=== PATIENT | female | born 1960 | race Asian ===

== ENCOUNTER 2020-10-14 15:56 | Emergency (ER) | payer BC, OTHER ==
[~2020-10-14] VITALS: Ht 165.1 cm; Wt 49.9 kg
[2020-10-14] MEDS ORDERED: KETOROLAC TROMETH 30 MG/ML 1ML VIAL IV ONE (16:45)
[2020-10-14] MEDS ORDERED: ALPRAZolam 0.25 MG TAB PO ONE (16:45)
[2020-10-14 17:05] LABS: Urine Bacteria NONE SEEN /hpf (None Seen); Urine Blood 3+ /uL (Negative); Urine Mucus FEW (None Seen); Urine Specific Gravity 1.014 (1.001-1.035); Urine WBC 202 /hpf (0 - 5)
[2020-10-14] MEDS ORDERED: cefTRIAXone 1GM/50ML D5W 50 ML IV ONE (17:15)
[2020-10-14 17:29] LABS: Basophils # (auto) 0.1 10 ^3/uL (0-0.2); Basophils % (auto) 0.7 % (0.0-2.0); Eosinophils # (auto) 0.1 10 ^3/uL (0-0.8); Eosinophils % (auto) 0.9 % (0.0-7.0); Hemoglobin 14.8 g/dL (12.2-16.2); Lymphocytes # (auto) 1.7 10 ^3/uL (0.4-5.4); Lymphocytes % (auto) 18.8 % (10.0-50.0); Mean Corpuscular Hgb Conc. 34.4 g/dL (32.0-36.0); Mean Corpuscular Volume 87.1 fL (80.0-100.0); Monocytes # (auto) 0.4 10 ^3/uL (0-1.3); Monocytes % (auto) 4.9 % (0.0-12.0); Neutrophils # (auto) 6.9 10 ^3/uL (1.6-8.6); Neutrophils % (auto) 74.7 % (37.0-80.0); Red Blood Cells 4.93 10^6/uL (4.0-5.20); Red Cell Distribution Width 13.5 % (11.8-14.3); White Blood Cell 9.2 10^3/uL (4.4-10.8)
[2020-10-14 17:49] LABS: Calcium 9.4 mg/dL (8.5-10.1); Potassium 4.1 mmol/L (3.5-5.1)
[2020-10-14 17:55] LABS: Albumin 3.7 g/dL (3.4-5.0); BUN/Creatinine Ratio 38.8; Bilirubin, Total 0.4 mg/dL (0.2-1.0); Total Protein 7.8 g/dL (6.4-8.2)
[2020-10-14 18:22] VITALS: BP 120/78
[2020-10-14] MEDS ORDERED: CEFD300C2 PO (18:54)
== END 2020-10-14 19:20 | disposition home or self-care (01) ==
LOC: ER 15:56
DX: R31.9 Hematuria, unspecified (principal); E11.9 Type 2 diabetes mellitus without complications; Z90.710 Acquired absence of both cervix and uterus; Z79.899 Other long term (current) drug therapy; Z87.442 Personal history of urinary calculi; Z98.890 Other specified postprocedural states
CPT/HCPCS: 36415; 74176; 80053; 81001; 85025; 96365; 96366; 99284; J0696; J1885

== ENCOUNTER 2022-05-08 20:24 | Emergency (ER) | payer BC, MEDICAID ==
[~2022-05-08] VITALS: Ht 162.6 cm; Wt 53.3 kg
[~2022-05-08 20:24] MED LIST: CEFD300C2 PO
[2022-05-08 20:43] VITALS: BP 141/91
[2022-05-08 21:40] LABS: Basophils # (auto) 0.1 10 ^3/uL (0-0.2); Basophils % (auto) 1.1 % (0.0-2.0); Eosinophils # (auto) 0.1 10 ^3/uL (0-0.8); Eosinophils % (auto) 1.1 % (0.0-7.0); Hematocrit 41.8 % (36.0-46.0); Hemoglobin 14.2 g/dL (12.2-16.2); Lymphocytes # (auto) 2.3 10 ^3/uL (0.4-5.4); Lymphocytes % (auto) 44.3 % (10.0-50.0); Mean Corpuscular Hgb Conc. 33.9 g/dL (32.0-36.0); Mean Corpuscular Volume 88.6 fL (80.0-100.0); Monocytes # (auto) 0.3 10 ^3/uL (0-1.3); Monocytes % (auto) 5.3 % (0.0-12.0); Neutrophils # (auto) 2.6 10 ^3/uL (1.6-8.6); Neutrophils % (auto) 48.2 % (37.0-80.0); Nucleated Red Blood Cells % 0.1 %; Red Blood Cells 4.71 10^6/uL (4.0-5.20); Red Cell Distribution Width 13.7 % (11.8-14.3); White Blood Cell 5.3 10^3/uL (4.4-10.8)
[2022-05-08 21:45] LABS: INR 0.94 (0.9-1.15); Partial Thromboplastin Time 25.9 sec (24.6-33.4)
[2022-05-08 21:48] LABS: Albumin 4.1 g/dL (3.4-5.0); BUN/Creatinine Ratio 44.8; Calcium 9.6 mg/dL (8.5-10.1); Magnesium 2.3 mg/dL (1.6-2.6)
[2022-05-08 21:50] LABS: Bilirubin, Total 0.3 mg/dL (0.2-1.0); Total Protein 7.5 g/dL (6.4-8.2)
[2022-05-08] MEDS ORDERED: ASPirin 81 mg TAB PO ONE (22:15)
== END 2022-05-09 01:20 | disposition left against medical advice (07) ==
LOC: ER 20:24
DX: R07.89 Other chest pain (principal); E11.9 Type 2 diabetes mellitus without complications; Z90.710 Acquired absence of both cervix and uterus; Z79.899 Other long term (current) drug therapy
CPT/HCPCS: 36415; 80053; 82962; 83735; 83880; 84484; 85025; 85379; 85610; 85730; 93005

== ENCOUNTER 2023-09-20 07:16 | Inpatient (IN) | payer MEDICAID ==
[~2023-09-20] VITALS: Ht 162.6 cm; Wt 54.3 kg
[2023-09-20] MEDS: LACTATED RINGER'S 1,000 ML IV SCH (01:00)
[2023-09-20 07:52] LABS: Urine Bacteria FEW /hpf (None Seen); Urine Blood Negative /uL (Negative); Urine Clarity Clear (Clear); Urine Color Light-Yellow (Yellow); Urine Protein, UAD Negative (Negative); Urine Urobilinogen Normal (Negative); Urine WBC <1 /hpf (0 - 5)
[2023-09-20 08:37] LABS: Basophils # (auto) 0 10 ^3/uL (0-0.2); Basophils % (auto) 0.9 % (0.0-2.0); Eosinophils # (auto) 0 10 ^3/uL (0-0.8); Hematocrit 42.5 % (36.0-46.0); Hemoglobin 14.4 g/dL (12.2-16.2); Lymphocytes # (auto) 1.2 10 ^3/uL (0.4-5.4); Lymphocytes % (auto) 32.1 % (10.0-50.0); Mean Corpuscular Hemoglobin 30.4 pg (28.0-32.0); Mean Corpuscular Volume 89.6 fL (80.0-100.0); Monocytes # (auto) 0.2 10 ^3/uL (0-1.3); Monocytes % (auto) 6.3 % (0.0-12.0); Neutrophils # (auto) 2.3 10 ^3/uL (1.6-8.6); Neutrophils % (auto) 59.7 % (37.0-80.0); Nucleated Red Blood Cells % 0.2 %; Red Blood Cells 4.75 10^6/uL (4.0-5.20); Red Cell Distribution Width 13.6 % (11.8-14.3); White Blood Cell 3.8 10^3/uL (4.4-10.8)
[2023-09-20 08:54] LABS: Chloride 108 mmol/L (98-107); Potassium 4.2 mmol/L (3.5-5.1); Sodium 141 mmol/L (136-145)
[2023-09-20 08:57] LABS: Carbon Dioxide 29 mmol/L (20-30)
[2023-09-20 08:58] LABS: Calcium 10.1 mg/dL (8.7-10.4)
[2023-09-20 09:02] LABS: Glucose 97 mg/dL (74-106)
[2023-09-20 09:03] LABS: Blood Urea Nitrogen 17 mg/dL (9-23)
[2023-09-20 09:05] LABS: Anion Gap 4 (5-15)
[2023-09-20] MEDS: cefTRIAXone 1GM/50ML D5W 50 ML IV ONE (10:57)
[2023-09-20] MEDS ORDERED: ACETAMINOPHEN 325 MG TAB PO PRN (12:15)
[2023-09-20] MEDS ORDERED: ONDANSETRON HCL 4 MG/2 ML VIAL IV PRN (12:15)
[2023-09-20] MEDS ORDERED: MORPHINE SULFATE INJ 2 MG/ml SYRG IV PRN (12:15)
[2023-09-20] MEDS ORDERED: HYDROcodone-ACET 5/325MG TAB PO PRN (12:15)
[2023-09-20 12:36] VITALS: PULSE 64; RESP 16; O2SAT 97
[2023-09-20] MEDS ORDERED: FENO145T27 PO (12:45)
[2023-09-20] MEDS ORDERED: DEXTROSE (50%) 50ML SYRG IV PRN (12:45)
[2023-09-20] MEDS ORDERED: ROSU5TAB24 PO (12:45)
[2023-09-20] MEDS ORDERED: EZET-10 PO (12:45)
[2023-09-20] MEDS ORDERED: ESCI5TAB20 PO (12:46)
[2023-09-20 13:15] LABS: Triglycerides 97 mg/dL (< 150)
[2023-09-20 13:16] LABS: LDL Cholesterol 135 mg/dL (< 100)
[2023-09-20 13:17] LABS: Cholesterol 223 mg/dL (< 200); HDL Cholesterol 64 mg/dL (40-59)
[2023-09-20] MEDS ORDERED: MORPHINE SULFATE INJ 2 MG/ml SYRG IV ONE (15:30)
[2023-09-20 16:45] VITALS: BP 101/58; PULSE 67; RESP 16; TEMP 98; O2SAT 92
[2023-09-20] MEDS: InsuLIN REG 1unit/0.01ml Soln (100units/ml) SC SCH ×2 (17:00→22:00)
[2023-09-20] MEDS: ACCU-CHEK COMFORT CURVE STRIP VI SCH (17:00)
[2023-09-20] MEDS: TAMSULOSIN HYDROCHLORIDE 0.4 MG CAP PO SCH (17:24)
[2023-09-20 17:42] VITALS: BP 101/58; PULSE 67; RESP 16; TEMP 98; O2SAT 92
[2023-09-20] MEDS ORDERED: METF-370 PO (18:21)
[2023-09-20 21:00] VITALS: BP 96/69; PULSE 59; RESP 18; TEMP 98.1; O2SAT 93
[2023-09-20] MEDS: ATORVASTATIN 20 MG TAB PO SCH (22:26)
[2023-09-21 01:00] VITALS: BP 113/70; PULSE 62; RESP 16; TEMP 98; O2SAT 96
[2023-09-21 05:00] VITALS: BP 110/70; PULSE 77; RESP 18; TEMP 97.9; O2SAT 98
[2023-09-21 08:00] VITALS: PULSE 60; RESP 18
[2023-09-21 08:14] VITALS: BP 107/52; PULSE 60; RESP 18; TEMP 97.9; O2SAT 95
[2023-09-21 08:42] LABS: Basophils # (auto) 0 10 ^3/uL (0-0.2); Basophils % (auto) 0.9 % (0.0-2.0); Eosinophils # (auto) 0.1 10 ^3/uL (0-0.8); Eosinophils % (auto) 1.4 % (0.0-7.0); Hematocrit 38.3 % (36.0-46.0); Hemoglobin 13.1 g/dL (12.2-16.2); Lymphocytes # (auto) 1.3 10 ^3/uL (0.4-5.4); Mean Corpuscular Hemoglobin 30.7 pg (28.0-32.0); Mean Corpuscular Hgb Conc. 34.3 g/dL (32.0-36.0); Mean Corpuscular Volume 89.4 fL (80.0-100.0); Monocytes # (auto) 0.2 10 ^3/uL (0-1.3); Neutrophils % (auto) 55.7 % (37.0-80.0); Nucleated Red Blood Cells % 0.1 %; Red Blood Cells 4.28 10^6/uL (4.0-5.20); Red Cell Distribution Width 13.6 % (11.8-14.3); White Blood Cell 3.6 10^3/uL (4.4-10.8)
[2023-09-21 08:56] LABS: Alanine Aminotransferase 13 U/L (7-40); Alkaline Phosphatase 66 U/L (46-116); Anion Gap 7 (5-15); BUN/Creatinine Ratio 22.2 (10.0-20.0); Blood Urea Nitrogen 12 mg/dL (9-23); Calcium 9.4 mg/dL (8.7-10.4); Carbon Dioxide 25 mmol/L (20-30); Chloride 110 mmol/L (98-107); Glucose 86 mg/dL (74-106); Potassium 3.8 mmol/L (3.5-5.1); Sodium 142 mmol/L (136-145)
[2023-09-21 08:58] LABS: Albumin 3.8 g/dL (3.2-4.8); Aspartate Aminotransferase 10 U/L (13-40); Total Protein 5.8 g/dL (5.7-8.2)
[2023-09-21] MEDS: cefTRIAXone 1GM/50ML D5W 50 ML IV SCH (09:46)
[2023-09-21] MEDS: EZETIMIBE 10 MG PO SCH (10:00)
[2023-09-21] MEDS: ESCITALOPRAM 10 MG PO SCH (10:00)
[2023-09-21] MEDS: [UNRECOGNIZED DRUG - OTHER] PO SCH (10:00)
[2023-09-21] MEDS: ENOXAPARIN SOD 40 MG/0.4 ML SYRINGE SC SCH (10:00)
[2023-09-21] MEDS: [UNRECOGNIZED DRUG - OTHER] PO SCH (10:00)
[2023-09-21] MEDS: FENOFIBRATE 145 MG PO SCH (10:00)
[2023-09-21] MEDS: BY MOUTH DAILY PO SCH (10:00)
[2023-09-21 12:24] VITALS: BP 107/52; PULSE 62; RESP 18; TEMP 98.1; O2SAT 95
[2023-09-21 17:00] VITALS: BP 96/54; PULSE 58; RESP 16; O2SAT 95
== END 2023-09-21 19:30 | disposition left against medical advice (07) | DRG 463 ==
LOC: ER 07:16 → OVERFLOW 12:32 → EAST 16:27
PROVIDERS: ADMIT Registered Nurse; ATTEND Internal Medicine
DX: N30.00 Acute cystitis without hematuria (principal); E11.9 Type 2 diabetes mellitus without complications; E78.5 Hyperlipidemia, unspecified; F41.9 Anxiety disorder, unspecified; Z53.29 Procedure and treatment not carried out because of patient's decision for other reasons; N20.0 Calculus of kidney; N28.1 Cyst of kidney, acquired; Z90.710 Acquired absence of both cervix and uterus; Z83.3 Family history of diabetes mellitus; Z82.0 Family history of epilepsy and other diseases of the nervous system; Z79.4 Long term (current) use of insulin
CPT/HCPCS: 36415; 74176; 76775; 80048; 80053; 80061; 81001; 82962; 83036; 85025; 87040; 87086; 93005; 96365; G0378

== ENCOUNTER 2025-03-05 12:19 | Emergency (ER) | payer OTHER, MEDICAID ==
[~2025-03-05] VITALS: Ht 165.1 cm; Wt 54.5 kg
[~2025-03-05 12:19] MED LIST changes: +ESCI5TAB20 PO; +EZET-10 PO; +FENO145T27 PO; +METF-370 PO; +ROSU5TAB24 PO
[2025-03-05] MEDS: SODIUM CHLORIDE 0.9% 1,000 ML IV ONE (12:30)
--- NOTE | 2025-03-05 12:34 | ED.PDOC ---
GI ASSESSMENT HPI Comments 65 y/o F, BIBA, with PMHx of DM presents to the ED for CC abdominal pain. 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 Per EMS, patient also endorses having new onset fecal incontinence; having a bowel in route to the ED. Patient denies fever, chills, melena, or change in diet. No other symptoms or modifying factors are present at this time. Chief Complaint: Abdominal Pain Time Seen by MD: 12:30 Primary Care Provider: Navjot Pickering Reviewed Notes: Nurses Notes, Consultant Technology Notes, Medications, Allergies Allergies: Coded Allergies: NO KNOWN ALLERGIES (Unverified , 10/14/20) Home Meds Active Scripts Cefdinir (Cefdinir) 300 Mg Cap, 1 CAP PO BID for 10 Days, #20 CAP Prov:YANNICK VASQUEZ MD 10/14/20 Reported Medications Metformin Hydrochloride (Metformin Hcl) 500 Mg Tab, 500 MG PO DAILY for 30 Days, MG 09/20/23 Escitalopram Oxalate (ESCITALOPRAM OXALATE) 5 Mg Tab, 1 TAB PO DAILY 09/20/23 Ezetimibe (Ezetimibe) 10 Mg Tab, 1 TAB PO DAILY 09/20/23 Rosuvastatin Calcium (Rosuvastatin Calcium) 5 Mg Tab, 1 TAB PO DAILY 09/20/23 Fenofibrate (FENOFIBRATE) 145 Mg Tab, 1 TAB PO DAILY 09/20/23 Information Source: Patient, Emergency Med Personnel Mode of Arrival: EMS Timing: Hours Duration: Since onset Prehospital treatment: None Vomitus: Watery Stool: Watery Severity: Moderate Recent: None Recent Hx of: None Pain Location: Diffuse Modifying Factors: Nothing Associated sign and symptoms: Nausea, Vomiting, Diarrhea, Abdominal Pain Past Medical History PAST MEDICAL HISTORY: DM, Gallstones, Kidney Stones Surgical History: , Hysterectomy VIRTUAL ASSISTANT History: No Pertinent VIRTUAL ASSISTANT History Family History Family History: Reviewed,noncontributory to illness Social History Smoker: Non-Smoker Alcohol: Denies ETOH Use Drugs: Denies Drug Use Lives In: Home Constitutional: denies: chills, diaphoresis, fatigue, fever, malaise, sweats, weakness, others EENTM: denies: blurred vision, double vision, ear bleeding, ear discharge, ear drainage, ear pain, ear ringing, eye pain, eye redness, hearing loss, mouth pain, mouth swelling, nasal discharge, nose bleeding, nose congestion, nose pain, photophobia, tearing, throat pain, throat swelling, voice changes, others Respiratory: denies: cough, hemoptysis, orthopnea, SOB at rest, shortness of breath, SOB with excertion, stridor, wheezing, others Cardiovascular: denies: chest pain, dizzy spells, diaphoresis, Dyspnea on exertion, edema, irregular heart beat, left arm pain, lightheadedness, palpitations, PND, syncope, others Gastrointestinal: reports: abdominal pain, diarrhea, nausea, vomiting; denies: abdomen distended, blood streaked bowels, constipated, dysphagia, difficulty swallowing, hematemesis, melena, poor appetite, poor fluid intake, rectal bleeding, rectal pain, others Genitourinary: denies: abnormal vagina bleeding, burning, dyspareunia, dysuria, flank pain, frequency, hematuria, incontinence, pain, , vagina dischar ge, urgency, others Neurological: denies: dizziness, fainting, headache, left sided numbness, left sided weakness, numbness, paresthesia, pre-existing deficit, right sided numbness, right sided weakness, seizure, speech problems, tingling, tremors, weakness, others Musculoskeletal: denies: back pain, gout, joint pain, joint swelling, muscle pain, muscle stiffness, neck pain, others Integumetry: denies: bruises, change in color, change in hair/nails, dryness, laceration, lesions, lumps, rash, wounds, others Allergic/Immunocompromised: denies: Difficulty Healing, Frequent Infections, Hives, Itching, others Hematologic/Lymphatic: denies: anemia, blood clots, easy bleeding, easy bruising, swollen glands, others Endocrine: denies: excessive hunger, excessive sweating, excessive thirst, excessive urination, flushing, intolerance to cold, intolerance to heat, unexplained weight gain, unexplained weight loss, others Psychiatric: denies: anxiety, bipolar disorder, depression, hopeless, panic disorder, schizophrenia, sleepless, suicidal, others All Other Systems: Reviewed and Negative Physical Exam General Appearance: Moderate Distress, Thin HEENT: Normal ENT Inspection, Pharynx Normal, TMs Normal Neck: Full Range of Motion, Non-Tender, Normal, Normal Inspection Respiratory: Chest Non-Tender, Lungs Clear, No Accessory Muscle Use, No Respiratory Distress, Normal Breath Sounds Cardiovascular: No Edema, No JVD, No Murmur, No Gallop, Normal Peripheral Pulses, Regular Rate/Rhythm Breast Exam: Deferred Gastrointestinal: No Organomegaly, Non Tender, No Pulsatile Mass, Normal Bowel Sounds, Soft Genitalia: Deferred Pelvic: Deferred Rectal: Deferred Extremities: No calf tenderness, Normal capillary refill, Normal inspection, Normal range of motion, Non-tender, No pedal edema Musculoskeletal : Apperance: Normal Neurologic: Alert, 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 Was a procedure done?: No GI differential Dx Differential Diagnosis: Constipation, Diverticular disease, Esophagitis, Gastritis/PUD, Gastroenteritis, Electrolyte Imbalance, Food Poisoning, Bacterial, Viral X-Ray, Labs, Meds, VS Vital Signs Date Time Temp Pulse Resp B/P (MAP) Pulse Ox O2 Delivery O2 Flow Rate FiO2 03/05/25 14:00 97.4 112 14 123/63 (83) 99 97.4 03/05/25 13:01 97.4 121 14 109/70 (83) 99 97.4 03/05/25 12:22 98.1 91 16 105/67 94 98.1 Lab Test 03/05/25 12:46 Range/Units White Blood Count 12.8 H 4.4-10.8 10^3/uL Red Blood Count 6.14 H 4.0-5.20 10^6/uL Hemoglobin 18.4 H 12.2-16.2 g/dL Hematocrit 56.0 H 36.0-46.0 % Mean Corpuscular Volume 91.2 80.0-100.0 fL Mean Corpuscular Hemoglobin 30.0 28.0-32.0 pg Mean Corpuscular Hemoglobin Concent 32.9 32.0-36.0 g/dL Red Cell Distribution Width 13.6 11.8-14.3 % Platelet Count 219 140-450 10^3/uL Mean Platelet Volume 8.7 6.9-10.8 fL Neutrophils (%) (Auto) 88.8 H 37.0-80.0 % Lymphocytes (%) (Auto) 9.5 L 10.0-50.0 % Monocytes (%) (Auto) 1.4 0.0-12.0 % Eosinophils (%) (Auto) 0.2 0.0-7.0 % Basophils (%) (Auto) 0.1 0.0-2.0 % Neutrophils # (Auto) 11.3 H 1.6-8.6 10 ^3/uL Lymphocytes # (Auto) 1.2 0.4-5.4 10 ^3/uL Monocytes # (Auto) 0.2 0-1.3 10 ^3/uL Eosinophils # (Auto) 0 0-0.8 10 ^3/uL Basophils # (Auto) 0 0-0.2 10 ^3/uL Nucleated Red Blood Cells 0.2 % Sodium Level 140 136-145 mmol/L Potassium Level 4.3 3.5-5.1 mmol/L Chloride Level 104 98-107 mmol/L Carbon Dioxide Level 24 20-31 mmol/L Anion Gap 12 5-15 Blood Urea Nitrogen 9 9-23 mg/dL Creatinine 0.76 0.550-1.02 mg/dL Glomerular Filtration Rate Calc 87 >90 mL/min BUN/Creatinine Ratio 11.8 10.0-20.0 Serum Glucose 114 H 74-106 mg/dL Calcium Level 10.6 H 8.7-10.4 mg/dL Patient alert. Was incontinent. Possible syncope. WBC elevated. Establish intravenous access. Was given fluids. Was given Rocephin. Was given Flagyl. Continue monitoring. Time of 1ST Reevaluation: 13:00 Reevaluation 1ST: Unchanged Patient Education/Counseling: Diagnosis, Treatment Family Education/Counseling: No Family Present SEPSIS Sepsis Screen Physician Orders Urinalysis (03/05/25 12:22) Vital Signs Date Time Temp Pulse Resp B/P (MAP) Pulse Ox O2 Delivery O2 Flow Rate FiO2 03/05/25 14:00 97.4 112 14 123/63 (83) 99 97.4 03/05/25 13:01 97.4 121 14 109/70 (83) 99 97.4 03/05/25 12:22 98.1 91 16 105/67 94 98.1 Laboratory Tests Test 03/05/25 12:46 White Blood Count 12.8 10^3/uL (4.4-10.8) H Departure 1 Departure Time of Disposition: 14:49 Impression: Primary Impression: Gastroenteritis Disposition: 09 ADMITTED INPATIENT Admit to: Med Surg Condition: Guarded Critical Care Note Critical Care Time?: No Stability Stability form required: No Heart Score Heart Score: Heart Score Response (Comments) Value History N/A 0 EKG N/A 0 Age N/A 0 Risk Factors N/A 0 Troponin N/A 0 Total 0 I personally scribed for PAUL JAMES MD ([email or web address]) on 03/05/25 at 12:34. Electronically submitted by Jaswinder Haynes ([email or web address]). PAUL JAMES MD Mar 05, 2025 12:34
[2025-03-05 13:17] LABS: Hematocrit 56.0 % (36.0-46.0); Hemoglobin 18.4 g/dL (12.2-16.2); Mean Corpuscular Hemoglobin 30.0 pg (28.0-32.0); Mean Corpuscular Volume 91.2 fL (80.0-100.0); Nucleated Red Blood Cells % 0.2 %
[2025-03-05 14:05] LABS: Chloride 104 mmol/L (98-107); Potassium 4.3 mmol/L (3.5-5.1); Sodium 140 mmol/L (136-145)
[2025-03-05 14:06] LABS: Anion Gap 12 (5-15); Carbon Dioxide 24 mmol/L (20-31)
[2025-03-05 14:07] LABS: Calcium 10.6 mg/dL (8.7-10.4)
[2025-03-05 14:12] LABS: BUN/Creatinine Ratio 11.8 (10.0-20.0); Blood Urea Nitrogen 9 mg/dL (9-23)
[2025-03-05 14:16] LABS: Glucose 114 mg/dL (74-106)
[2025-03-05 15:45] VITALS: BP 116/60; PULSE 111; RESP 14; TEMP 97.4; O2SAT 99
== END 2025-03-05 15:48 | disposition left against medical advice (07) ==
LOC: ER 12:19 → EDBD 12:19 → ER 15:48
DX: K52.9 Noninfective gastroenteritis and colitis, unspecified (principal); E11.9 Type 2 diabetes mellitus without complications; Z90.710 Acquired absence of both cervix and uterus; Z79.899 Other long term (current) drug therapy
CPT/HCPCS: 36415; 80048; 85025